=== PATIENT | male | born 1980 | race Caucasian/White ===

== ENCOUNTER → 2016-10-16 | Outpatient (CLI) | payer MEDICAID ==
--- NOTE | 2016-10-16 10:37 | RADIOLOGY REPORT PS360 ---
EXAM: Barium swallow/esophagram. INDICATION: Dysphasia ORDERING PHYSICIAN: TEJAS TRAYLOR MD PATIENT AGE: 36 years COMPARISON: 11/03/2015 TECHNIQUE: In the upright position the patient was observed to swallow barium in both the AP and lateral view. The cervical esophagus was examined under fluoroscopy with images obtained. The patient was then placed prone in the right anterior oblique position and was observed to swallow barium with Valsalva technique . FLUOROSCOPY TIME: 48 seconds FINDINGS: Small sliding hiatal hernia is once again noted. There is a mildly constricting chest CT brain as before. Reflux was not demonstrated during the exam. No mass or erosive changes evident.. IMPRESSION: Small sliding hiatal hernia with mildly constricting Schatzki's ring as before
== END ==
LOC: RAD 08:44
DX: R13.10 Dysphagia, unspecified (principal)